=== PATIENT | female | born 1995 | race Caucasian/White ===

== ENCOUNTER 2016-09-12 22:40 | Emergency (ER) | payer MEDICAID ==
[2016-09-12 23:12] VITALS: BP 136/86; PULSE 90; RESP 16; TEMP 98.9; O2SAT 100
--- NOTE | 2016-09-12 23:13 | ED PDOC ---
HPI: General Adult Time Seen by Provider: 09/12/16 23:13 Chief Complaint (Nursing): Abnormal Skin Integrity Chief Complaint (Provider): mass to back History Per: Patient Additional Complaint(s): 20-year-old female with no past medical history presents to emergency department with lump to left upper back that she first noticed 1 week ago. Patient denies any trauma or injury to the affected area. She denies any active bleeding or drainage. She rates her current pain as 1 out of 10. Past Medical History Reviewed: Historical Data, Nursing Documentation, Vital Signs Vital Signs: Last Vital Signs Temp 98.9 F 09/12/16 23:10 Pulse 90 09/12/16 23:10 Resp 16 09/12/16 23:10 BP 136/86 09/12/16 23:10 Pulse Ox 100 09/12/16 23:13 - Medical History PMH: No Chronic Diseases - Surgical History Surgical History: No Surg Hx - Family History Family History: States: No Known Family Hx - Living Arrangements Living Arrangements: With Family - Social History Current smoker - smoking cessation education provided: No Alcohol: None Drugs: Denies - Home Medications Home Medications: Ambulatory Orders Medication Instructions Recorded Nitrofurantoin Macrocrystals 1 cap PO BID #14 cap 07/03/15 [Macrobid] Phenazopyridine HCl [Pyridium] 100 mg PO TID #6 tab 07/03/15 - Allergies Allergies/Adverse Reactions: Allergies Allergy/AdvReac Type Severity Reaction Status Date / Time peanut Allergy Verified 07/02/15 22:46 sesame seed Allergy Verified 07/02/15 22:46 cats Allergy ITCHING Uncoded 07/02/15 22:46 cherries Allergy Uncoded 07/02/15 22:47 Review of Systems ROS Statement: Except As Marked, All Systems Reviewed And Found Negative Constitutional: Negative for: Fever Skin: Positive for: Other (mass to upper back) Physical Exam - Reviewed Nursing Documentation Reviewed: Yes Vital Signs Reviewed: Yes - Physical Exam Appears: Positive for: Well, Non-toxic, No Acute Distress Eye Exam: Positive for: EOMI, Normal appearance, PERRL Cardiovascular/Chest: Positive for: Regular Rate, Rhythm Respiratory: Positive for: CNT, Normal Breath Sounds Back: Positive for: Other (5 cm in diameter fluctuant mass noted to left upper back, no erythema or tenderness to palpation, appearance consistent with likely lipoma, no infection noted) Extremity: Positive for: Normal ROM Neurologic/Psych: Positive for: Alert, Oriented - ECG O2 Sat by Pulse Oximetry: 100 Pulse Ox Interpretation: Normal Medical Decision Making Medical Decision Making: Impression: Lipoma Plan: NSAID's for pain, surgery referral for follow up. Disposition - Clinical Impression Clinical Impression: Lipoma - Patient ED Disposition Is Patient to be Admitted: No Counseled Patient/Family Regarding: Diagnosis, Need For Followup - Disposition Referrals: Brandy Lopez MD [Staff Provider] - Audrey Sanford MD [Staff Provider] - Disposition: Routine/Home Disposition Time: 23:23 Condition: STABLE Additional Instructions: Take Tylenol or Advil for pain as needed. Monitor area closely and if symptoms worsen follow up with primary doctor or with surgeon. Instructions: Lipoma (ED)
== END 2016-09-12 23:47 | disposition home or self-care (01) ==
LOC: H.ER 22:40
DX: D17.9 Benign lipomatous neoplasm, unspecified (principal)